=== PATIENT | female | born 1950 | race Caucasian/White ===

== ENCOUNTER → 2020-10-24 01:08 | Outpatient (CLI) | payer MEDICARE, BC, SELFPAY ==
[2020-10-24 20:54] LABS: SARS-CoV-2 RNA PCR Negative
== END ==
PROVIDERS: PCP Family Medicine; Visit Provider Plastic Surgery
DX: Z01.812 Encounter for preprocedural laboratory examination (principal); Z20.822 Contact with and (suspected) exposure to COVID-19
CPT/HCPCS: C9803; U0003; U0005

== ENCOUNTER 2020-10-24 07:32 | Outpatient (CLI) | payer MEDICARE, BC, SELFPAY ==
[2020-10-24 08:32] LABS: Anion Gap 7 mmol/L (8-16); Blood Urea Nitrogen 10 mg/dL (7-17); Calcium 9.1 mg/dL (8.4-10.2); Carbon Dioxide 27 mmol/L (22-30); Chloride 104 mmol/L (98-107); Estimated Glomerular Filt Rate > 60; Glucose 124 mg/dL (65-105); Potassium 4.2 mmol/L (3.4-5.0); Sodium 138 mmol/L (137-145)
== END 2020-10-24 07:33 | disposition home or self-care (01) ==
PROVIDERS: PCP Family Medicine; Visit Provider Anesthesiology
DX: E11.9 Type 2 diabetes mellitus without complications (principal); Z01.818 Encounter for other preprocedural examination
CPT/HCPCS: 36415; 80048; C9803; U0003; U0005

== ENCOUNTER 2020-10-28 04:33 | Day surgery (SDC) | payer MEDICARE, BC, SELFPAY ==
[2020-10-19 15:48] VITALS: BMI 40.9
[2020-10-28 06:07] VITALS: BP 139/82; PULSE 80; RESP 18; TEMP 36.7; O2SAT 97
[2020-10-28] MEDS: LACTATED RINGERS 1,000 ML 30 ML IV CONT (06:25)
[2020-10-28 06:26] LABS: Glucose Point of Care 136 (65-105)
--- NOTE | 2020-10-28 06:34 | P.PNAN_ITS ---
Anes - Initial Pre Proc Eval Procedure: Operation Date: 10/28/20 07:30 Proposed Procedures p Right Open Carpal Tunnel Release - Sekou Zayas MD Date/Time: 10/28/20 06:34 Surgeon: Sekou Zayas MD Pre Op Diagnosis: Right Carpal Tunnel Syndrome Patient Data Age: 70 Gender: F Height: 1.56 m Weight: 100 kg Allergies Allergy/AdvReac Type Severity Reaction Status Date / Time Penicillins Allergy Mild Hives Verified 10/28/20 06:32 Home Medications Medication Instructions Recorded Confirmed Type aspirin [Adult Low Dose Aspirin] 81 mg PO DAILY 10/19/20 10/28/20 History cholecalciferol (vitamin D3) 50 mcg PO DAILY 10/19/20 10/28/20 History levothyroxine 112 mcg PO HS 10/19/20 10/28/20 History losartan 50 mg PO QAM 10/19/20 10/28/20 History metformin 500 mg PO QAM 10/19/20 10/28/20 History metoprolol succinate 100 mg PO BID 10/19/20 10/28/20 History potassium chloride 10 meq PO QAM 10/19/20 10/28/20 History Laboratory Tests 10/28/20 06:21 POC Capillary Glucose 136 mg/dl H mg/dl (65-105) Patient hx anesthesia problems: none Family hx anesthesia problems: none COUNT INCLUDES THE [facility] Past Medical History Medical History (Updated 10/28/20 @ 06:34 by Corby Chapman DO) Asthma Diabetes type 2, controlled Hypertension Hypothyroidism SVT (supraventricular tachycardia) Surgical History Surgical History (Updated 10/28/20 @ 06:34 by Corby Chapman DO) H/O thyroidectomy History of hysterectomy Social History Social History Smoking status: Never smoker Substance use: never Living arrangements: with family Additional living arrangements comments: [facility] Spiritual care concerns: No Anes - Eval Final PreProcedure Day of Procedure 10/28/20 06:34 Patient weight: morbidly obese Heart: regular rate and rhythm Lungs: clear to auscultation and normal air movement Airway: Mallampati scale class II Neurological: alert and oriented Last oral intake: >/= 8 hours ASA classification: III Emergent: no Anesthetic plan: proceed Anesthesia type and monitoring: general GIVS and standard monitoring Informed Consent: The patient's anesthetic plan and its attendant risks and benefits were discussed with the patient/family/POA. Questions were solicited and answers provided to the satisfaction of the patient/family/POA.
--- NOTE | 2020-10-28 07:06 | WPDHPUPDATE1 ---
History and Physical Update Update Date/Time: 10/28/20 07:06 History and Physical has been reviewed, including an updated exam of the patient. There are NO changes in the patient's condition. Risks, benefits, and alternatives have been discussed and questions answered. Patient agrees to proceed with procedure.
[2020-10-28] MEDS: LIDO 1%/EPINEPHRINE 1:100,000 50 ML VIAL INFILTRATE (07:49)
[2020-10-28 07:54] VITALS: BP 100/61; PULSE 88; RESP 14; O2SAT 95
[2020-10-28 07:57] LABS: Glucose Point of Care 133 (65-105)
--- NOTE | 2020-10-28 08:02 | PM.OP ---
Procedure Note - Brief Procedure Note - Brief Date of procedure: 10/28/20 Pre-op diagnosis: Right Carpal Tunnel Syndrome Post-op diagnosis: same Procedure performed: R OCTR Anesthesia: MAC Surgeon: Sekou Zayas MD Drains: No Packing: No Pathology: none sent Complications: No immediate complications Condition: stable Disposition: same day
--- NOTE | 2020-10-28 08:03 | P.OP_ITS ---
Procedure Note - Detailed Date of procedure: 10/28/20 Pre-op diagnosis: Right Carpal Tunnel Syndrome Post-op diagnosis: same Procedure performed: Right open carpal tunnel release Description of procedure: The site was marked on the patient's hand in the holding area. She was taken to the operating room and placed supine on the operating table. A time-out was held and confirmed. The extremity was prepped and draped in usual fashion. The marking was remade and the site locally infiltrated with 1% lidocaine with epinephrine. The tourniquet was inflated to 250 mmHg. The incision was made as marked and dissection was carried through t he subcutaneous tissue to the palmar fascia. This and the carpal ligament were incised with a 15. Blade. Under 3 point retraction the ligament was visualized and divided distally and then proximally for complete release. No unusual anatomy noted. The skin was closed with interrupted 5 0 nylon suture and a small bandage applied the tourniquet was released. The patient is being discharged with a prescription for hydrocodone 5/325 10. Anesthesia: MAC Surgeon: Sekou Zayas MD Estimated blood loss (mL): 0 Drains: No Packing: No Pathology: none sent Complications: No immediate complications Condition: stable Disposition: same day
[2020-10-28 08:30] VITALS: BP 125/79; PULSE 80; RESP 16
== END 2020-10-28 09:05 | disposition home or self-care (01) ==
PROVIDERS: PCP Family Medicine; Visit Provider Plastic Surgery
PROC: (CPT 64721; principal; 2020-10-28 07:30)
DX: G56.01 Carpal tunnel syndrome, right upper limb (principal); Z79.82 Long term (current) use of aspirin; Z79.84 Long term (current) use of oral hypoglycemic drugs; J45.909 Unspecified asthma, uncomplicated; I47.1 Supraventricular tachycardia; E66.01 Morbid (severe) obesity due to excess calories; Z68.41 Body mass index [BMI] 40.0-44.9, adult; E89.0 Postprocedural hypothyroidism; E78.5 Hyperlipidemia, unspecified; E11.9 Type 2 diabetes mellitus without complications; K21.9 Gastro-esophageal reflux disease without esophagitis; G47.30 Sleep apnea, unspecified; E78.00 Pure hypercholesterolemia, unspecified; I10 Essential (primary) hypertension
CPT/HCPCS: 64721; 82948; A9270; J0131; J1100; J1885; J2250; J2590; J2704; J3010; J7120

== ENCOUNTER 2022-04-27 10:15 | Outpatient (CLI) | payer MEDICARE, BC, SELFPAY ==
--- NOTE | ~2022-04-27 | MM_ITS ---
EXAMINATION: MM screening [facility]ri BI w [facility] HISTORY: Screening mammogram TECHNIQUE: Craniocaudal and mediolateral oblique 3-D tomosynthesis images were obtained and synthetic 2-D images were generated. CAD analysis was submitted and interpreted. COMPARISON: 11/09/2018, 08/30/2017, 08/25/2016 BREAST PARENCHYMAL COMPOSITION: The breasts are heterogeneously dense, which may obscure small masses . FINDINGS: Scattered benign-appearing calcifications are present. No suspicious mass, calcification, o r architectural distortion are identified in either breast to suggest malignancy. There has been no s uspicious interval change. IMPRESSION: 1. No mammographic evidence of malignancy. 2. Recommend routine screening mammography in one year. BI-RADS Category 2: Benign finding(s). Reviewed, dictated and finalized at location A.
== END 2022-04-27 10:16 | disposition home or self-care (01) ==
LOC: ANHIMG 10:17
PROVIDERS: PCP Family Medicine; Visit Provider Obstetrics & Gynecology
DX: Z12.31 Encounter for screening mammogram for malignant neoplasm of breast (principal)
CPT/HCPCS: 77063; 77067

== ENCOUNTER 2023-07-20 14:27 | Outpatient (CLI) | payer MEDICARE, BC, SELFPAY ==
--- NOTE | ~2023-07-20 | MM_ITS ---
EXAMINATION: MM screening [facility]ri BI w [facility] HISTORY: Screening TECHNIQUE: Craniocaudal and mediolateral oblique 3-D tomosynthesis images were obtained and synthetic 2-D images were generated. CAD analysis was submitted and interpreted. COMPARISON: Comparison to multiple prior studies sequentially, with oldest reviewed study dated 10/2015. BREAST PARENCHYMAL COMPOSITION: Breast composed of scattered areas of fibroglandular density FINDINGS: There is no evidence of suspicious mass, calcification, or architectural distortion to sugg est malignancy in either breast. There has been no suspicious interval change. IMPRESSION: 1. No mammographic evidence of malignancy. 2. Recommend routine screening mammography in one year. BI-RADS Category 1: Negative Reviewed, dictated and finalized at location A. ANIC WELDER
== END 2023-07-20 14:28 | disposition home or self-care (01) ==
PROVIDERS: PCP Family Medicine; Visit Provider Obstetrics & Gynecology
DX: Z12.31 Encounter for screening mammogram for malignant neoplasm of breast (principal)
CPT/HCPCS: 77063; 77067

== ENCOUNTER 2024-11-28 09:52 | Outpatient (CLI) | payer MEDICARE, BC, SELFPAY ==
--- NOTE | ~2024-11-28 | MM_ITS ---
EXAMINATION: MM screening cheri BI w victor manuel HISTORY: Screening TECHNIQUE: Craniocaudal and mediolateral oblique 3-D tomosynthesis images were obtained and synthetic 2-D images were generated. CAD analysis was submitted and interpreted. COMPARISON: Comparison to multiple prior studies sequentially, with oldest reviewed study dated 10/2015. BREAST PARENCHYMAL COMPOSITION: Not dense: There are scattered areas of fibroglandular density. FINDINGS: There is no evidence of suspicious mass, calcification, or architectural distortion to sugg est malignancy in either breast. There has been no suspicious interval change. IMPRESSION: 1. No mammographic evidence of malignancy. 2. Recommend routine screening mammography in one year. BI-RADS Category 1: Negative Reviewed, dictated and finalized at location A.
--- OUTSIDE RECORDS SUMMARY | 2024-11-28 09:55 | XMS_ITS | Data Portability ---
Author Organization [facility], [address] [place] [address] Neurology ([place]) Address [address] [place] [address] Care Team Providers Care Cotton Roll Packer Name Role Phone STEPHEN PICKARD Primary Care Provider MANDY MAYES [employer] [phone] Assessment Encounter Date Assessment Date Assessment LastModified by Organization Details LastModified Time 10/01/2024 10/01/2024 Patient here and received bilateral viscosupplementation injections as outlined in the procedure section of the note. madi Not available 10/13/2024 18:42:32 10/09/2024 10/09/2024 Chief complaint: Bilateral knee osteoarthritis, viscosupplementation #2 History of present illness: Patient is a 74-year-old female with a known history of bilateral knee osteoarthritis who comes in today to receive her second viscosupplementation injections to her bilateral knees. She states she has not noticed any improvement in her symptoms in fact she might feel little worse today than she did prior to receiving these injections however she denies any new injury. She denies any fevers chills or sweats. She denies any erythema or ecchymosis about her knees. She denies any joint effusion present. Physical exam: Patient is a 74-year-old female in no acute distress who is well-dressed well-nourished and shows appropriate mood and affect. Her bilateral knees are without any ecchymosis or erythema. There is no joint effusion present bilaterally. Assessment: Bilateral knee osteoarthritis Plan: Plan discussed with the patient today. Patient did receive bilateral viscosupplementation injections today. She did tolerate the procedure well. She will follow-up next week for the third and final viscosupplementation injections. She may follow-up sooner if the need arises. She may contact us with further questions or concerns. [email or web address] Not available 10/09/2024 14:01:41 10/15/2024 10/15/2024 Visco performed as per procedure section of note. [email or web address] Not available 10/17/2024 11:51:16 10/15/2024 10/15/2024 Exam is reassuri ng. Suspect patient has a little bit of underlying reactive airway disease due to allergies. Typically, she responds well to prednisone in these scenarios. We will do a taper dose which has worked well for her in the past. She is aware to monitor blood sugars and to let us know if she has consistently high readings. Reviewed worrisome signs and symptoms and when to notify the office. Tom [email or web address] Not available 10/15/2024 15:03:20 10/29/2024 10/29/2024 Sinus Tachycardia/Palpitati ons: She denies significant palpitations. I recommend continued symptomatic observation, risk factor modification, and beta blockade. Hypertension: The patient's blood pressure is well controlled in the office today. I will continue the patient's current anti-hypertensive medication regimen in this regard. Dyslipidemia: The patient's goal LDL is less than 100. Her lipid panel from June 2024 demonstrated a LDL of 140. She'd like to reevaluate her lipid panel with her next visit with Dr. Pickard in December prior to making any changes in this regard. I have asked for the patient to follow up in 1 year. If you or the patient feels that he or she needs to be seen sooner, we would be happy to do so. If you have any questions or concerns, please do not hesitate to call. Thank you for allowing us the privilege of participating in this patient's care. [email or web address] Not available 10/29/2024 12:27:34 Plan of Treatment Reminders Order Date Submit Date Provider Last Modified By Organization Details Last Modified Time Details Appointments Devin gutierrez Patient 20.EST 2024 09:40A M Dr. Stephen Pickard Not available Not available Not available Devin gutierrez Patient 15.EST 2024 10:30A M Dr. Blake Khanna Not available Not available Not available Devin gutierrez Patient 30.EST 2025 01:00P Cleo MAYES Not available Not available Not available Lab None recorde d. Referral None recorde d. Procedures None recorde d. Surgeries None recorde d. Imaging None recorde d. Medication Orders prednis one 5 mg tablet 2024 025 [id number], [address] [place], [place], [id number], 10/15/2024 14:20:22 Patient TargetsNo targets recorded. Patient InstructionsNo instructions recorded. Reason for Referral None Reported. Results Created Date Observation Date Name Description Value Unit Range Abnormal Flag Note LastModifiedBy Organization Detail LastModifiedTime 10/29/1908/27/2020 imagi ng/eloise pereyra tic resul t No observ ation record ed. [email or web address] Not Available 22:58:52 Result Notes None recorded. Problems Name Problem SNOMED Code Status Onset Date Resolution Date Notes Provider Name and Address Organization Details Recorded Time Lentigo - freckle 632427977 Active 2023 Nunu Orr APRN, [employer] [address] [place] [address], [phone], [facility] 4 12:25:37 Melanocyt ic nevus of right lower limb 434385323733 108 Active 2023 Nunu Orr APRN, [employer] [address] [place] [address], [address], [facility] 4 12:25:37 Melanocyt ic nevus of right upper limb 783700658 Active 2023 Nunu Orr APRN, [employer] [address] [place] [address], [address], [facility] 4 12:25:37 Seborrhei c keratosis 719448941 Active 2023 Nunu Orr APRN, [employer] [address] [place] [address], [phone], [facility] 4 12:25:37 Cystic acne 82162668 Active 2023 Nunu Orr, HEAT TREATING BLUER, [employer] [address] [place] [address], [place], [address], [facility] 4 12:26:10 Low back pain 505667061 Active 2023 Stephen li MD [address] [place] [address], [place], [address], [facility] 4 14:51:29 Acute cough Active 2024 Jamir Stallings, HE[employer] TREATING BL[employer]ER, [employer] [address] [place], [address], [facility] 5 14:16:12 Palpitati ons 37332103 Active 2024 [facility] 5 17:27:56 Essential hypertens ion 09299228 Active 2024 [facility] 5 17:28:17 Dyslipide josefina 181745638 Active 2024 [facility] 5 17:28:26 Benign essential hypertens ion 1770092 [facility] 5 17:29:01 Sinus tachycard ia 31463216 Active 2024 MANDY Wise, [employer] [address] [place] [address], [address], [facility] 5 12:13:14 Bilateral osteoarth ritis of knees 880909566696 107 Active 2023 Tran Pitt PA-C [address] [place] [address], [address], [facility] 4 12:47:13 Anxiety 75138934 Active 2023 Christy Salvador null, [facility] 4 08:43:05 Benign essential hypertens ion 5230339 Completed 202310/28/2024 Cleopatra Rowland null, [facility] 5 17:29:01 Type 2 diabetes mellitus without complicat ion 040723207 Active 2023 Christy Salvador null, [facility] 4 08:43:28 Gastroeso phageal reflux disease without esophagit is 672860752 Active 2023 [facility] 4 08:46:10 Obstructi ve sleep apnea syndrome 73312278 Active 2023 [facility] 4 08:46:28 Body mass index 40+ - severely obese 362636985 Active 2023 [facility] 4 08:46:44 Postopera tive hypothyro idism 92284356 Active 2023 [facility] 4 08:47:33 Hypokalem ia 03604265 Active 2023 [facility] 4 08:59:25 Mediastin al lymphaden opathy 07722232 Active 2023 Stephen li MD [address] [place] [address], [address], [facility] 4 10:45:08 Fatigue 55344304 Active 2023 Blake Khanna M.D. [address] [place] [address], [address], [facility] 4 12:18:53 Disorder of vitamin B12 320208533 Active 2023 Blake Khanna M.D. [address] [place] [address], [address], [facility] 4 12:19:21 Vitamin D deficienc y 22116429 Active 2023 Blake Khanna M.D. [address] [place] [address], [phone] 3[facility] 4 12:19:30 Problem Notes None recorded. Procedures Surgical History Date Name Laterality Status Provider Name and Address Organization Details Recorded Time 025 SC Viscosupplementation III completed [facility] 10/15/2024 14:59:20 025 SC Viscosupplementation I completed [facility] 09/30/2024 16:49:17 013 cardiac catheterization completed [facility] 10/28/2024 17:35:06 hysterectomy completed [facility] 10/28/2024 17:34:11 thyroidectomy completed [facility] 10/28/2024 17:34:32 ligation of fallopia n tube completed [facility] 10/28/2024 17:34:42 cataract surgery completed [facility] 10/29/2024 12:07:52 decompression of med ras nerve completed [facility] 10/29/2024 12:07:58 Imaging Results None recorded. Procedure Notes None recorded. Medical Equipment None Reported. Allergies Allergen ID Allergen Name Allergen Category Reaction Reaction Severity Criticality Documentation Date Start Date Code Code System Note Provider Name and Address Organization Details Recorded Time 6271941 pravastat in sodium medicatio n Not available Not available Not available 08/02/20232009 4 RxNorm React ion: Angin a; Myalg ia; Not Available [facility] 4 03:56:02 4466825 Procardia medicatio n other Not available Not available 08/02/20232014 3 RxNorm React ion: GI Upset ; Comme nt: Annot ation s: ENE JANE 2014 10:05 AM thick tongu e; ; Not Available [facility] 4 03:56:09 3282060 Product containin g penicilli n (product) medicatio n hives Not available Not available 08/02/20232007 58562 8001 SNOMED React ion: Hives ; Not Available [facility] 4 03:56:17 6483549 Pravachol medicatio n Not available Not available Not available 04/10/20242009 34179 3 RxNorm React ion: Angin a; Myalg ia; Not Available [facility] 4 19:43:52 405944 escitalop vincenzo oxalate medicatio n other Not available Not available 07/31/20232021 17503 8 RxNorm React ion: Hyper tensi on; Not Available [facility] 4 23:13:35 228954 metformin medicatio n Not available Not available Not available 07/31/20232022 6809 RxNorm Not Available [facility] 4 23:13:35 Medications Name Sig Start Date Stop Date Status Note LastModified by Organization Details LastModified Time losartan 50 mg tablet TAKE 1 TABLET BY MOUTH EVERY DAY FOR HIGH BLOOD PRESSURE active Not Available Not Available No t Available nystatin 100,000 unit/mL oral suspension SWISH AND SWALLOW 5 ML BY MOUTH FOUR TIMES DAILY FOR 1 WEEK 12/20 completed Not Available Not Available Not Available potassium chloride ER 10 mEq capsule,ext ended release TAKE 1 CAPSULE BY MOUTH DAILY 12/20 completed Not Available Not Available Not Available albuterol sulfate 2.5 mg/3 mL (0.083 %) solution for nebulizatio n USE 1 UNIT VIA NEBULIZER EVERY 4 HOURS NEEDED 12/27 completed Not Available Not Available Not Available azithromyci n 250 mg tablet 12/20 completed Not Available Not Available Not Available ofloxacin 0.3 % eye drops INSTILL 1 DROP IN BOTH EYES FOUR TIMES DAILY FOR 5 DAYS 10/15 completed Not Available Not Available Not Available sucralfate 1 gram tablet TAKE 1 TABLET BY MOUTH FOUR TIMES DAILY BEFORE MEALS AND AT BEDTIME 12/20 completed Not Available Not Available Not Available ondansetron HCl 4 mg tablet TAKE 1 TABLET BY MOUTH EVERY 4 HOURS NEEDED FOR NAUSEA 12/20 completed Not Available Not Available Not Available prednisone 20 mg tablet 12/20 completed Not Available Not Available Not Available metoprolol succinate ER 100 mg tablet,exte nded release 24 hr TAKE 1 TABLET BY MOUTH TWICE DAILY FOR HIGH BLOOD PRESSURE active Not Available Not Available No t Available prednisone 5 mg tablet START WITH 10 TABLETS BY MOUTH ON DAY 1 THEN DECREASE BY 1 TABLET DAILY active Not Available Not Available No t Available potassium chloride ER 10 mEq tablet,exte nded release TAKE 1 TABLET BY MOUTH EVERY DAY FOR LOW POTASSIUM active Not Available Not Available No t Available tretinoin 0.05 % topical cream APPLY A THIN LAYER TO FACE 2 TO 3 NIGHTS WEEKLY FOLLOWED BY LOTION, INCREASE NIGHTLY TOLERATED 02/25 completed Not Available Not Available Not Available glimepiride 1 mg tablet TAKE 1 TABLET BY MOUTH DAILY WITH BREAKFAST active Not Available Not Available No t Available alprazolam 0.5 mg tablet Take 1 tablet as needed by oral route. 2023 active Not Available Not Available Not Avai lable magnesium oxide 400 mg (241.3 mg magnesium) tablet TAKE 1 TABLET BY MOUTH DAILY FOR 5 DAYS 12/20 completed Not Available Not Available Not Available [employer] [employer] Ultra Test strips USE TO TEST ONCE DAILY 2024 active Not Available Not Available Not Avai lable omeprazole 20 mg capsule,del ayed release TAKE 1 CAPSULE BY MOUTH EVERY MORNING BEFORE BREAKFAST active Not Available Not Available No t Available aspirin 81 mg tablet Take 1 tablet every day by oral route. active Not Available Not Available No t Available Baby Aspirin 81 mg chewable tablet Chew 1 tablet every day by oral route. 10/28 completed Not Available Not Available Not Available furosemide 20 mg tablet TAKE 1 TABLET BY MOUTH DAILY FOR 5 DAYS 12/20 completed Not Available Not Available Not Available levalbutero l 1.25 mg/3 mL solution for nebulizatio n USE 1 VIAL VIA NEBULIZER 4-6 HOURS NEEDED active Not Available Not Available No t Available methylpredn isolone 4 mg tablets in a dose pack FOLLOW PACKAGE DIRECTION S 10/15 completed Not Available Not Available Not Available cefdinir 300 mg capsule TAKE ONE CAPSULE BY MOUTH EVERY 12 HOURS UNTIL ALL TAKEN 12/20 completed Not Available Not Available Not Available metformin ER 500 mg tablet,exte nded release 24 hr TAKE 1 TABLET BY MOUTH TWICE DAILY 12/20 completed Not Available Not Available Not Available levothyroxi ne 112 mcg tablet TAKE 1 TABLET BY MOUTH DAILY ON AN EMPTY STOMACH active Not Available Not Available No t Available clindamycin phosphate 1 % topical solution APPLY TO NECK/FACE EVERY DAY 02/25 completed Not Available Not Available Not Available azithromyci n 500 mg tablet TAKE 2 TABLETS BY MOUTH FOR A 1 TIME DOSE 12/20 completed Not Available Not Available Not Available chlorhexidi ne gluconate 0.12 % mouthwash SWISH AND SPIT OUT 15ML BY MOUTH TWICE DAILY FOR AT LEAST 2 WEEKS 12/20 completed Not Available Not Available Not Available Vitamin D3 2000 IU daily active Not Available Not Available No t Available Vitamin B12 1000 iu daily 01/29 completed Not Available Not Available Not Available Horizon Nasal Cpap System active Not Available Not Available Not Available hydrochloro thiazide 12.5 mg tablet TAKE 1 TABLET BY MOUTH EVERY DAY active Not Available Not Available No t Available OneTouch Delica Plus Lancet 30 gauge USE DIRECTED TO TEST 2024 active Not Available Not Available Not Avai lable Vitals Date Recorded Body height Provider Name an d Address Organization Details Last Updated DateTime 10/15/2024 157.48 cm Yanelis Rednour [facility] 10/15/2024 14:58:54 Date Recorded Body height Body mass index (BMI) Body weight Respiratory rate Body temperature Heart rate Oxygen saturation Oxygen saturation in Arterial blood by Pulse oximetry Systolic blood pressure Diastolic blood pressure Provider Name and Address Organization Details Last Updated DateTime 157.48 cm 41.5 kg/m2 505328. 47 g 18 /min 96.8 [degF] 84 /min 95 % 95 % 136 mm[Hg] 70 mm[Hg] Sherry flor [facility] 14:04:44 Date Recorded Systolic blood pressure Diastolic blood pressure Provider Name and Address Organization Details Last Updated DateTime 10/29/2024 134 mm[Hg] 70 mm[Hg] MANDY MAYES, [employer] [address] [place] [address], [phone], [facility] 10/29/2024 12:18:39 Date Recorded Body height Respiratory rate Heart rate Oxygen saturation Oxygen saturation in Arterial blood by Pulse oximetry Body mass index (BMI) Body weight Provider Name and Address Organization Details Last Updated DateTime 157.48 cm 16 /min 110 /min 96 % 96 % 41.2 kg/m2 149885. 28 preston Phillip [facility] 12:04:28 Social History Question Answer Notes LastModified by Organizat ion Details LastModified Time Tobacco Smoking Status Never Smoker Cleopatra Rowland [facility] 10/28/2024 17:33:54 What Is Your Level Of Caffeine Consumption? Occasional [email or web address] Information not available 10/29/2024 Sex: Unknown Functional Status Question Answer Note LastModified by Organization D etails LastModified Time What is your level of alcohol consumption? None Information not available 10/28/2024 Are you currently employed? No [email or web address] Information not available 10/29/2024 Mental Status None recorded. Family History Relationship Description Onset Age of this Age Resolved Age Notes LastModified by Organization Details LastModified Time Sister History of coronary artery bypass grafting [email or web address] Not available 10/02 17:29:47 Sister Diabetes mellitus [email or web address] Not available 10/02 17:31:01 Sister History of renal failure [email or web address] Not available 10/02 17:32:18 Brother Stented coronary artery 69 [email or web address] Not available 10/02 17:30:40 Father Heart failure [email or web address] Not available 10/02 17:30:27 Father History of renal failure [email or web address] Not available 10/02 17:32:04 Mother Aneurysm 93 [email or web address] Not availa ble 10/28/2024 17:31:19 Medical History Condition Response Diabetes Y Hyperlipidemia Y High Blood Pressure Y Thyroid Disease Y Sleep Apnea Y GERD/Reflux Y Gynecological HistoryNo gynecological history recorded. Obstetrics History GPAL:G 0 P 0 0 0 0 Immunizations Vaccine Type Date Status Note Provider Nam e and Address Organization Details Recorded Time zoster recombinant 8 [facility]2023 10:23:25 zoster recombinant 8 [facility] 12/21/2023 10:23:25 COVID-19, mRNA, LNP-S, PF, 100 mcg/0.5mL dose or 50 mcg/0.25mL dose 1 completed Sherry Novasler null, [facility] 12/21/2023 10:23:25 COVID-19, mRNA, LNP-S, PF, 100 mcg/0.5mL dose or 50 mcg/0.25mL dose 1 completed Sherry Kumar [facility] 12/21/2023 10:23:25 pneumococcal polysaccharide PPV23 9 completed Sherry Kumar [facility] 12/21/2023 10:23:25 Tdap 1 completed Sherry Kumar [facility] 12/21/2023 10:23:25 Pneumococcal conjugate PCV 13 8 completed Sherry Lopesuessler [facility] 12/21/2023 10:23:25 Past Encounters Encounter ID Performer Location Encounter Start Date Encounter Closed Date Diagnosis/Indication Diagnosis SNOMED-CT Code Diagnosis ICD10 Code Diagnosis Note [id number] Tran Pitt PA-C [facility] ([place]) [address] [address] 11/29/2023 11:34:15 11/30/2023 09:41:47 Bilateral osteoarthritis of knees 4647728100 49311 M17.0 PROCEDURE: The risks and benefits of viscosuppl ementation were again reviewed with the patient, and the patient agreed with the plan to begin the series. The risks and benefits of the injection were also discussed today. The posterior aspect of the patient's bilateral knees were prepped in sterile fashion using Betadine and alcohol swabs. . Euflexxa 2 mL was then injected intraartic ularly without difficulty into the bilateral knees. A Band-Aid was placed over the injection site. The patient tolerated the procedure well. There were no complicati ons. [id number] Tran Pitt PA-C [facility] ([place]) [address] [place] [address] 12/06/2023 12:53:58 12/06/2023 14:28:33 Bilateral osteoarthritis of knees 4597991422 01861 M17.0 PROCEDURE: The risks and benefits of viscosuppl ementation were again reviewed with the patient, and the patient agreed with the plan to begin the series. The risks and benefits of the injection were also discussed today. The posterior aspect of the patient's bilateral knees were prepped in sterile fashion using Betadine and alcohol swabs. . Euflexxa 2 mL was then injected intraartic ularly without difficulty into the bilateral knees. A Band-Aid was placed over the injection site. The patient tolerated the procedure well. There were no complicati ons. [id number] Tran Pitt PA-C [address] [facility] ([place]) [address] [place] [address] 12/13/2023 11:32:49 12/13/2023 12:03:31 Bilateral osteoarthritis of knees 8309121909 19721 M17.0 PROCEDURE: The risks and benefits of viscosuppl ementation were again reviewed with the patient, and the patient agreed with the plan to begin the series. The risks and benefits of the injection were also discussed today. The posterior aspect of the patient's bilateral knees were prepped in sterile fashion using Betadine and alcohol swabs. . Euflexxa 2 mL was then injected intraartic ularly without difficulty into the bilateral knees. A Band-Aid was placed over the injection site. The patient tolerated the procedure well. There were no complicati ons. [id number] Stephen Pickard MD [facility] ([place]) [address] [place] [address] 12/21/2023 10:10:13 12/21/2023 13:08:13 Type 2 diabetes mellitus without complication 892600046 E11.9 Postoperat stepan hypothyroidism 55635299 E89.0 Gastroesop hageal reflux disease without esophagitis 657614060 K21.9 Benign ess ential hypertension 6448770 I10 Anxiety 84661521 F41.9 Mediastina l lymphadenopathy 56700806 R59.0 Wheezing 71382970 R06.2 Hypokalemia 46613698 E87 .6 Adult heal th examination 880120018 Z00.00 [id number] Blake Khanna M.D. [facility] ([place]) [address] [place] [address] 12/28/2023 11:45:08 12/28/2023 17:25:04 Postoperative hypothyroidism 45078888 E89.0 Fatigue 03872715 R53.83 Disorder o f vitamin B12 246789663 E53.8 Vitamin D deficiency 347 63428 E55.9 Body mass index 40+ - severely obese 494045122 Z68.41 [id number] Nunu Orr APRN, [employer] [facility] ([place]) [address] [facility] [place] [address] 01/30/2024 09:52:54 01/30/2024 11:42:09 Melanocytic nevus of right upper limb 117110571 D22.61 The following diagnosis is categorize d as a CHRONIC ILLNESS (STABLE/At Pt Goal): Benign nevi. We discussed the importance of watching for new and/or changing lesions. We discussed the worrisome changes to watch for that could indicate a melanoma. We discussed the importance of photoprote ction using protective clothing and sunscreen with OTC SPF thirty or higher. Avoid peak hours of sun exposure (10am-3pm) . We discussed the importance of regular self skin examinatio ns. Melanocyti c nevus of right lower limb 9434251794 21419 D22.71 Seborrheic keratosis 394 323383 L82.1 The following diagnosis is categorize d as a SELF LIMITED OR MINOR PROBLEM: Seborrheic keratoses : We discussed the fact that these are benign lesions requiring no treatment. We discussed the fact that removal would be considered a cosmetic procedure and would not be covered by insurance. The patient was advised that more such lesions may develop. The patient is not bothered by the lesions and does not wish to have them treated. We will observe. Advised to use a sunscreen of at least SPF 30 and wear protective clothing. Lentigo - freckle 388467 006 L81.4 The following diagnosis is categorize d as a SELF LIMITED OR MINOR PROBLEM: We discussed the fact that lentigines are actinicall y induced and that they are benign. We discussed the fact that they should be watched carefully for change. We discussed the importance of photoprote ction using protective clothing and sunscreen with SPF thirty or higher on a regular basis. Cystic acne 96956599 L70 .0 CHRONIC ILLNESS (Not at Pt Goal) Acne vulgaris Discussed diagnosis and treatment options. Female pt's advised to stop all medication if planning or gets and to let us know. PRESCRIPTI ON DRUG MANAGEMENT was performed including discussion with the patient and/or family member that may include dose, expectatio ns of treatment including potential side effects, review of patient response, and when necessary or clinically appropriat e change in medication or dosage.For topical therapy discussed side effects may include irritation /redness, burning sensation upon applicatio n, dryness/de squamation , and the potential for sensitizat ion Apply RX clindamyci n 1% solution to face/neck every morning after washing with water. Apply pea sized amount of RX tretinoin 0.05% cream 2-3 nights/wee k to face/neck. If causing too much dryness, apply over thin layer of CeraVe/Euc cintia/Vanic ream. As tolerated, increase frequency of applicatio n to nightly. May increase risk of sunburns so recommend wearing broad spectrum sunscreen (spf at least 30) daily. Go to [employer] for coupons. Pt wishes to avoid oral medication at this time. [id number] Stephen Pickard MD [facility] ([place]) [address] [place] [address] 02/26/2024 13:57:49 02/26/2024 15:14:57 Low back pain 703265703 M54.50 Benign ess ential hypertension 4000782 I10 [id number] Stephen Pickard MD [facility]) [address] [place] [address] 06/21/2024 10:49:53 06/21/2024 12:05:21 Type 2 diabetes mellitus without complication 673080879 E11.9 Anxiety 71741480 F41.9 Benign ess ential hypertension 9809047 I10 Postoperat stepan hypothyroidism 27726931 E89.0 Gastroesop hageal reflux disease without esophagitis 011244961 K21.9 Hypokalemia 09354566 E87 .6 Long-term current use of drug therapy 419092105 Z79.899 [id number] Bita santiago MD [facility] ([place]) [address] [place] [address] 10/01/2024 14:38:52 10/01/2024 15:43:39 Bilateral osteoarthritis of knees [id number] 56593 M17.0 [id number] [facility] ([place]) [address], [place] [address] 10/09/2024 13:37:34 10/10/2024 18:29:17 Bilateral osteoarthritis of knees [id number] 45893 M17.0 PROCEDURE: The risks and benefits of viscosuppl ementation were again reviewed with the patient, and the patient agreed with the plan to begin the series. The risks and benefits of the injection were also discussed today. The posterior aspect of the patient's bilateral knees were prepped in sterile fashion using Betadine and alcohol swabs. . Euflexxa 2 mL was then injected intraartic ularly without difficulty into the bilateral knees. A Band-Aid was placed over the injection site. The patient tolerated the procedure well. There were no complicati ons. [id number] Jamir Stallings APRN, [facility] ([place]) [address] [place] [address] 10/15/2024 13:47:54 10/15/2024 14:27:02 Acute cough [id number] R05.1 [id number] Bita santiago MD [facility] ([place]) [address] [place] [address] 10/15/2024 14:41:38 10/15/2024 15:43:38 Bilateral osteoarthritis of knees [id number] 63560 M17.0 [id number] MANDY MAYES APRN [address] [facility] ([place]) [address] [place] [address] 10/29/2024 11:50:27 10/29/2024 12:28:34 Benign essential hypertension 6606738 I10 Sinus tachycardia 216091 01 R00.0 Palpitations 27869015 R0 0.2 Dyslipidemia 019197763 E 78.5 Health Concerns Section Related Observation LastModified by Organization Detai ls LastModified Time None Recorded Concern Status LastModified by Organization Details LastModified Time None Recorded Advance Directives Directive None Recorded Payers Insurance Date Sequence Insurance Name Policy Number Policy E[place] Covered Member ID E[place] Member ID Guarantor Name 10/15/2024 1 [place] Irma M Nuno [id number] 2 Irma M Nuno 10/30/2024 2 [place] [id number] Austin Lemuss [id number] rIma Gallo Nuno 10/10/2024 [employer] [place] - PART A - RHC-[id number] (MEDICARE) Irma Cleo Nuno [id number] 2 Irma M Nuno Notes Date Note Type Note Provider Name and Address Organization Details Recorded Time 10/15/2024 text/html This is a 74-year-old female here today with complaints of cough, chest tightness and wheezing. This has been ongoing for a few weeks and just getting worse. She reports that she had asthma as a child and she typically does get this around allergy time. Past pulmonary function tests as an adult have not been positive for asthma. She denies any associated rhinorrhea, congestion, fever or chills, sore throat, chest pain. No major dyspnea. Jamir Stallings, [employer], [employer] [address] [place] [address], [id number], [facility] 10/16/2024 09:52:51 10/29/2024 text/html I saw this patie nt in the outpatient cardiology clinic today for follow-up. As you know, this patient has a cardiovascular history of sinus tachycardia and palpitations, hypertension, and dyslipidemia. The patient has been doing okay. She has quite a bit of stress lately given the recent tragic loss of her grandson. She reports stable exertional dyspnea. She reports intermittent episodes of feeling her heart race but denies feeling it skip. The patient denies anginal type chest discomfort, orthopnea, paroxysmal nocturnal dyspnea, peripheral edema, claudication, pre-syncope, syncope, or symptoms consistent with TIA or stroke. MANDY MAYES, [employer] [address] [facility], [place], [address], [facility] 10/29/2024 12:28:28 OBGyn Episode No OBEpisode recorded.
== END 2024-11-28 09:53 | disposition home or self-care (01) ==
PROVIDERS: PCP Family Medicine; Visit Provider Obstetrics & Gynecology
DX: Z12.31 Encounter for screening mammogram for malignant neoplasm of breast (principal)
CPT/HCPCS: 77063; 77067